=== PATIENT | male | born 1935 | race African-American/Black ===

== ENCOUNTER → 2017-01-03 | Outpatient (CLI) | payer MEDICARE, MEDICAID ==
[~2017-01-03] MED LIST: AMINOPHYLLINE INJ/PF 250 MG/10 ML SDV IV ONE; REGADENOSON INJ 0.4 MG/5 ML DISP.SYRIN IV ONE
--- NOTE | 2017-01-09 11:19 | RADIOLOGY REPORT ---
STRESS TEST REPORT PATIENT NAME: RITA MCNULTY ROOM#: DATE OF SERVICE: 01/03/2017 AGE: 81Y ORDER#: [id number] REFERRING MD: SHANTEL VALLE M.D. INDICATION: Coronary artery disease, positive stress test, and chest pains. PROCEDURE PERFORMED REST/STRESS SINGLE ISOTOPE CARDIOLITE SPECT IMAGING WITH IV LEXISCAN STRESS AND GATED SPECT IMAGING CLINICAL HISTORY This is a 80-year-old black male with known coronary artery disease and abnormal stress test currently complains of chest pains. Cardiac risk factors diabetes, hypertension, and hypercholesterolemia. PROCEDURE The patient received IV Lexiscan 0.4 mg infused over ten seconds and flushed. The resting heart rate was 59 bpm and increased to 66 bpm at end infusion. The resting BP was 140/86 and remained about the same, 148/72, at end infusion. The patient had symptoms of abdominal cramps and shortness of breath. Resting 12 lead EKG showed sinus rhythm with poor R progression in leads V1, V2, suggesting old anteroseptal CO. At end infusion, no ST changes were seen. Myocardial perfusion imaging was performed at rest 60 minutes following injection of 10.03 mCi Cardiolite ten seconds after the IV Lexiscan injection and flushed. 31.9 mCi Cardiolite was injected and flushed. Gated post stress tomographic imaging was performed 60 minutes after stress. FINDINGS The overall quality of the study is good. The left ventricular cavity is noted to be normal in size on both the rest and stress studies. There is no evidence of abnormal transient ischemic dilatation of the left ventricle. The TID ratio was 1.02 and normal. SPECT images showed a small area of moderate reversible ischemia in the apical inferior wall with complete reversibility, and a larger area of reversible ischemia in the basal two-thirds of the inferior wall with incomplete reversibility. The gated SPECT imaging showed decreased motion and contraction in the entire inferior wall. The left ventricular ejection fraction was calculated to be 51% and low normal. IMPRESSION: MYOCARDIAL PERFUSION IMAGING IS ABNORMAL. 1. THERE IS REVERSIBLE ISCHEMIA IN THE ENTIRE INFERIOR WALL WITH COMPLETE REVERSIBILITY ONLY IN THE APICAL ONE-THIRD OF THE INFERIOR WALL, AND INCOMPLETE REVERSIBILITY IN THE BASAL TWO-THIRDS OF THE INFERIOR WALL. 2. THERE IS NO FIXED PERFUSION DEFECT. 3. THE LEFT VENTRICULAR SYSTOLIC FUNCTION IS LOW NORMAL AT 51% AND 4. THERE IS REDUCED MOTION AND CONTRACTION IN THE INFERIOR WALL. 5. NO PRIOR STUDIES FOR COMPARISON. INTERPRETING PHYSICIAN: SHANTEL VALLE M.D. /: LINDA TT: [id number] ID: [id number] /: [id number] TD: [id number] JOB: [id number] cc:Victor Manuel LUBIN M.D. > JUMAD
== END ==
LOC: RAD 06:15
PROVIDERS: ATTEND Internal Medicine Cardiovascular Disease
DX: I25.10 Atherosclerotic heart disease of native coronary artery without angina pectoris (principal)
CPT/HCPCS: 93017; 78452; A9500; J2785; J0280; Q9969

== ENCOUNTER → 2017-08-28 | Outpatient (CLI) | payer MEDICARE, MEDICAID ==
[2017-08-28 13:32] LABS: ALANINE AMINOTRANSFERASE 34 U/L (21-72); ALBUMIN 3.8 g/dL (3.5-5.0); ALKALINE PHOSPHATASE 63 U/L (38-126); ANION GAP 9 (5-19); ASPARTATE AMINO TRANSFERASE 27 U/L (17-59); BILIRUBIN,DIRECT 0.3 mg/dL (0.0-0.4); BILIRUBIN,TOTAL 0.9 mg/dL (0.2-1.3); BLOOD UREA NITROGEN 12 mg/dL (7-20); CARBON DIOXIDE 30 mmol/L (22-30); CHLORIDE 103 mmol/L (98-107); CHOLESTEROL 142.92 mg/dL (0-200); GLUCOSE 112 mg/dL (75-110); POTASSIUM 4.2 mmol/L (3.6-5.0); SODIUM 142.2 mmol/L (137-145); TOTAL PROTEIN 6.8 g/dL (6.3-8.2); TRIGLYCERIDES 105 mg/dL (<150)
[2017-08-28 13:42] LABS: DIRECT LDL 70 mg/dL (<100)
== END ==
LOC: OD 12:25
PROVIDERS: ATTEND Internal Medicine Cardiovascular Disease
DX: E78.2 Mixed hyperlipidemia (principal); E11.9 Type 2 diabetes mellitus without complications; Z79.899 Other long term (current) drug therapy
CPT/HCPCS: 36415; 80048; 80061; 80076; 83036

== ENCOUNTER 2018-02-06 14:39 | Emergency (ER) | payer MEDICARE, MEDICAID ==
--- NOTE | 2018-02-06 15:26 | ER Document Report ---
ED Medical Screen (RME) - General Chief Complaint: Inability to Void Stated Complaint: DIFFICULTY URINATING,ABDOMINAL PAIN Time Seen by Provider: 02/06/18 15:16 Notes: RAPID MEDICAL EVALUATION DISCLOSURE I have seen this patient as part of a Rapid Medical Evaluation and, if applicable, placed any initially appropriate orders. The patient will be seen and fully evaluated, including a full history and physical exam, by a provider ( in Main ED or Fast Track) when a room becomes available. 82-year-old male PMH BPH and urinary retention here with complaints of difficulty urinating with subsequent lower abdominal pain. He was last able to urinate approximately 10 hours ago but has not urinated since then. He has not tried anything for the symptoms. He has not been taking any new medications recently. He does have a history of similar requiring insertion of a Biswas catheter but cannot tell me how long ago this occurred. He denies any fevers chills diarrhea or any other symptoms. EXAM Mild to moderate suprapubic TTP No peritoneal signs TRAVEL OUTSIDE OF THE [place] IN LAST 30 DAYS: No - Related Data Allergies/Adverse Reactions: No Known Allergies Allergy (Verified 02/06/18 14:40) Past Medical History - Social History Chew tobacco use (# tins/day): No Frequency of alcohol use: None Drug Abuse: None - Past Medical History Cardiac Medical History: Reports: Hx Hypercholesterolemia, Hx Hypertension Endocrine Medical History: Reports: Hx Diabetes Mellitus Type 2 Renal/ Medical History: Denies: Hx Peritoneal Dialysis Skin Medical History: Denies Hx MRSA Past Surgical History: Reports: Hx Cardiac Surgery - Immunizations Hx Diphtheria, Pertussis, Tetanus Vaccination: Yes Physical Exam - Vital signs Vitals: Temp Pulse Resp BP Pulse Ox 97.8 F 111 H 32 H 143/75 H 94 02/06/18 14:48 02/06/18 14:48 02/06/18 14:48 02/06/18 14:48 02/06/18 14:48 Course - Vital Signs Vital signs: Temp Pulse Resp BP Pulse Ox 97.8 F 111 H 32 H 143/75 H 94 02/06/18 14:48 02/06/18 14:48 02/06/18 14:48 02/06/18 14:48 02/06/18 14:48 Doctor's Discharge - Discharge Referrals: SHANTEL VALLE MD [Primary Care Provider] - Follow up as needed
[2018-02-06] MEDS ORDERED: LIDOCAINE 2% URO-JET 5 ML KIT MM ONE (15:56)
--- NOTE | 2018-02-06 16:29 | ER Document Report ---
ED GI/ - General Chief Complaint: Inability to Void Stated Complaint: DIFFICULTY URINATING,ABDOMINAL PAIN Time Seen by Provider: 02/06/18 15:16 Mode of Arrival: Wheelchair Information source: Patient Notes: Provider was called to the room because sales technician had been attempting to insert a Biswas catheter and after she met resistance she removed the catheter and noticed that patient had bleeding from the penis. Cast Iron Drain Pipe Layer states that she did not force the catheter but was concerned about the bleeding. Patient presents stating that he has had difficulty voiding and has not urinated for the past 11 hours. Denies any episodes of bleeding. Patient states that he has not had a history of BPH. Patient complains of some lower pelvic tenderness and chills at home. TRAVEL OUTSIDE OF THE [place] IN LAST 30 DAYS: No - HPI Patient complains to provider of: Abdominal pain - Lower pelvic pain, Other - Urinary retention Onset: This morning Timing/Duration: Gradual Quality of pain: Achy, Pressure Pain Level: 4 Location: Pelvis Associated symptoms: Diarrhea, Shortness of breath, Urinary retention. denies: Chest pain, Hurts to breath, Loss of appetite Exacerbated by: Denies Relieved by: Denies Similar symptoms previously: No Recently seen / treated by doctor: No - Related Data Allergies/Adverse Reactions: No Known Allergies Allergy (Verified 02/06/18 14:40) Past Medical History - General Information source: Patient - Social History Smoking Status: Former Smoker Chew tobacco use (# tins/day): No Frequency of alcohol use: None Drug Abuse: None Lives with: Spouse/Significant other Family History: Reviewed & Not Pertinent Patient has suicidal ideation: No Patient has homicidal ideation: No - Past Medical History Cardiac Medical History: Reports: Hx Hypercholesterolemia, Hx Hypertension Endocrine Medical History: Reports: Hx Diabetes Mellitus Type 2 Renal/ Medical History: Denies: Hx Peritoneal Dialysis Skin Medical History: Denies Hx MRSA Past Surgical History: Reports: Hx Cardiac Surgery - Immunizations Hx Diphtheria, Pertussis, Tetanus Vaccination: Yes Review of Systems - Review of Systems Constitutional: Chills EENT: No symptoms reported Cardiovascular: No symptoms reported. denies: Chest pain Respiratory: Short of breath. denies: Cough Gastrointestinal: Abdominal pain, Diarrhea. denies: Nausea, Vomiting Genitourinary: Retention Male Genitourinary: No symptoms reported Musculoskeletal: No symptoms reported. denies: Back pain Skin: No symptoms reported Hematologic/Lymphatic: No symptoms reported Neurological/Psychological: No symptoms reported Physical Exam - Vital signs Vitals: Temp Pulse Resp BP Pulse Ox 97.8 F 111 H 32 H 143/75 H 94 02/06/18 14:48 02/06/18 14:48 02/06/18 14:48 02/06/18 14:48 02/06/18 14:48 - General General appearance: Appears well, Alert In distress: Mild - Respiratory Respiratory status: No respiratory distress Chest status: Nontender Breath sounds: Normal. No: Rales, Rhonchi, Stridor, Wheezing Chest palpation: Normal - Cardiovascular Rhythm: Tachycardia Heart sounds: S1 appreciated, S2 appreciated - Abdominal Inspection: Normal Distension: No distension Bowel sounds: Normal Tenderness: Tender - suprapubic - Genitourinary Inspection: Blood at meatus Tenderness: Nontender - Back Back: Normal, Nontender - Extremities General upper extremity: Normal inspection, Normal ROM General lower extremity: Normal inspection, Normal ROM - Neurological Neuro grossly intact: Yes Cognition: Normal Madeline Coma Scale Eye Opening: Spontaneous Secretary Coma Scale Verbal: Oriented Secretary Coma Scale Motor: Obeys Commands Secretary Coma Scale Total: 15 - Psychological Associated symptoms: Normal affect, Normal mood - Skin Skin Temperature: Warm Skin Moisture: Dry Skin Color: Normal Course - Re-evaluation Re-evalutation: 02/06/[address] Burns to bedside for examination. Patient with bleeding from penis. Provider unable to insert a coud catheter. Patient continues with bleeding from the penis. Dr. Burns with ultrasound at bedside to assist with catheterization. Patient does have occasional urine leaking from penis with blood. 02/06/18 1705 Call placed to [facility] for consultation with Dr. Lyon. Dr. Lyon is not on-call for the hospital but graciously accepted phone call. Advises transfer to facility that has urology services on. 02/06/18 17:18 Call placed to transfer center, awaiting consult with urology. 02/06/18 17:[address] Burns regarding patient management, advises adding on cardiac enzyme testing and advises a contrasted CT scan if renal function tests are within normal limits. 02/06/18 17:38 Patient continues tachycardic, heart rate up into the upper 120s, blood pressure 105/63. Patient does continue to have bleeding. Unit of packed red blood cells have been ordered. Call placed again to transfer center to see if transfer can be expedited with consideration of possible air transfer ER to ER. Transfer center states that they have to wait until the urologist returns the phone call for consultation that they cannot consult with hospitalist or the ER staff at this time. 02/06/18 17:43 Consulted with radiologist regarding patient's renal function and concerned about bleeding. Advises contrasted scan with use of limited IV contrast and advises using Visipaque contrast. ambulatory technologist advised of conversation. 02/06/18 17:50 Provider to bedside. Patient now with gingival bleeding. Dr. Burns updated. Additional unit of packed red blood cells ordered as well as additional IV. 02/06/18 18:[address] Rocha at [facility]. Dr. Rocha with additional questions and uncertain about patient's need for transfer. Dr. Burns spoke with Dr. Rocha regarding patient presentation and concerns about the need for transfer to a higher level of care given that we do not have the urology services home economist. Dr. Burns did voice to the transfer center concern for expedited transfer. 02/06/18 18:12 Tech reports that rectal temperature was obtained. Patient is febrile. RN attempting to get bladder scan performed. Awaiting consultation with hospitalist and transfer center. 02/06/18 18:28 Patient on cooling blanket, patient drowsy, arouses to voice. Patient updated regarding plan of care. Patient family agreeable for transfer. 02/06/18 18:34 Dr. Burns gave report to hospital mechanical process engineer Dr. Gutierrez. Patient awaiting air transport at this time. Grant also advises giving Toradol 15 mg to defervesce patient. 02/06/18 19:[address] scan at this time. Family updated regarding plan of care. Propagation Worker states that helicopter has arrived for transfer. 02/06/18 20:03 Reviewed results of patient's pending labs and imaging studies that were performed just prior to patient being transferred out of the department. Transfer center at [facility] was called and Kat in the transfer center was advised of critical results including his potassium, decrease in H&H, decreased platelets, and results of imaging studies. Copies of these tests will be made per the racing secretary and handicapper and faxed to Luanne at the transfer center. Transfer center states that they will forward this information to patients provider. - Vital Signs Vital signs: Temp Pulse Resp BP Pulse Ox 104.1 F H 111 H 30 H 112/69 94 02/06/18 19:10 02/06/18 14:48 02/06/18 19:05 02/06/18 19:05 02/06/18 19:05 - Laboratory Result Diagrams: 02/06/18 18:43 02/06/18 18:43 Laboratory results interpreted by me: 02/06/18 02/06/18 02/06/18 16:42 16:42 16:42 WBC 3.2 L RBC 4.28 L Hgb Hct MCV 100 H MCH 34.2 H RDW 14.9 H Plt Count 119 L Seg Neutrophils % 90.7 H Seg Neuts % (Manual) Band Neutrophils % Lymphocytes % 8.4 L Monocytes % 0.6 L Absolute Lymphocytes 0.3 L Abs Lymphs (Manual) Absolute Monocytes 0.0 L PT 17.8 H APTT 48.7 H Potassium 3.2 L Chloride Carbon Dioxide BUN 21 H Creatinine 1.96 H Est GFR ( Amer) 40 L Est GFR (Non-Af Amer) 33 L Glucose 119 H Lactic Acid Calcium Alkaline Phosphatase Creatine Kinase Crossmatch 02/06/18 02/06/18 02/06/18 16:42 16:42 16:42 WBC RBC Hgb Hct MCV MCH RDW Plt Count Seg Neutrophils % Seg Neuts % (Manual) Band Neutrophils % Lymphocytes % Monocytes % Absolute Lymphocytes Abs Lymphs (Manual) Absolute Monocytes PT APTT Potassium Chloride Carbon Dioxide BUN Creatinine Est GFR ( Amer) Est GFR (Non-Af Amer) Glucose Lactic Acid Calcium Alkaline Phosphatase 197 H Creatine Kinase 237 H Crossmatch See Detail 02/06/18 02/06/18 02/06/18 17:45 18:43 18:43 WBC 2.9 L RBC 3.68 L Hgb 12.3 L D Hct 36.3 L MCV 99 H MCH 33.5 H RDW 15.4 H Plt Count 84 L Seg Neutrophils % Seg Neuts % (Manual) 80 H Band Neutrophils % 2 L Lymphocytes % Monocytes % Absolute Lymphocytes Abs Lymphs (Manual) 0.4 L Absolute Monocytes PT APTT Potassium 2.7 L* Chloride 109 H Carbon Dioxide 20 L BUN 22 H Creatinine 1.64 H Est GFR ( Amer) 49 L Est GFR (Non-Af Amer) 40 L Glucose Lactic Acid 5.4 H Calcium 7.3 L Alkaline Phosphatase Creatine Kinase Crossmatch Labs- Entire Visit 02/06/18 02/06/18 02/06/18 16:42 16:42 16:42 WBC 3.2 L RBC 4.28 L Hgb 14.6 Hct 42.7 MCV 100 H MCH 34.2 H MCHC 34.3 RDW 14.9 H Plt Count 119 L Total Counted Seg Neutrophils % 90.7 H Seg Neuts % (Manual) Band Neutrophils % Lymphocytes % 8.4 L Lymphocytes % (Manual) Monocytes % 0.6 L Monocytes % (Manual) Eosinophils % 0.1 Eosinophils % (Manual) Basophils % 0.2 Basophils % (Manual) Absolute Neutrophils 2.9 Abs Neuts (Manual) Absolute Lymphocytes 0.3 L Abs Lymphs (Manual) Absolute Monocytes 0.0 L Abs Monocytes (Manual) Absolute Eosinophils 0.0 Absolute Eos (Manual) Absolute Basophils 0.0 Abs Basophils (Manual) Nucleated RBCs Toxic Granulation Platelet Comment Anisocytosis Macrocytosis PT 17.8 H INR 1.40 APTT 48.7 H VBG pH VBG pCO2 VBG HCO3 VBG Base Excess Sodium 142.5 Potassium 3.2 L Chloride 103 Carbon Dioxide 22 Anion Gap 18 BUN 21 H Creatinine 1.96 H Est GFR ( Amer) 40 L Est GFR (Non-Af Amer) 33 L Glucose 119 H Lactic Acid Calcium 8.8 Total Bilirubin Direct Bilirubin Neonat Total Bilirubin Neonat Direct Bilirubin Neonat Indirect Bili AST ALT Alkaline Phosphatase Creatine Kinase CK-MB (CK-2) Troponin I Total Protein Albumin Blood Type Antibody Screen Crossmatch 02/06/18 02/06/18 02/06/18 16:42 16:42 16:42 WBC RBC Hgb Hct MCV MCH MCHC RDW Plt Count Total Counted Seg Neutrophils % Seg Neuts % (Manual) Band Neutrophils % Lymphocytes % Lymphocytes % (Manual) Monocytes % Monocytes % (Manual) Eosinophils % Eosinophils % (Manual) Basophils % Basophils % (Manual) Absolute Neutrophils Abs Neuts (Manual) Absolute Lymphocytes Abs Lymphs (Manual) Absolute Monocytes Abs Monocytes (Manual) Absolute Eosinophils Absolute Eos (Manual) Absolute Basophils Abs Basophils (Manual) Nucleated RBCs Toxic Granulation Platelet Comment Anisocytosis Macrocytosis PT INR APTT VBG pH VBG pCO2 VBG HCO3 VBG Base Excess Sodium Potassium Chloride Carbon Dioxide Anion Gap BUN Creatinine Est GFR ( Amer) Est GFR (Non-Af Amer) Glucose Lactic Acid Calcium Total Bilirubin 1.1 Direct Bilirubin 0.3 Neonat Total Bilirubin Not Reportable Neonat Direct Bilirubin Not Reportable Neonat Indirect Bili Not Reportable AST 44 ALT 26 Alkaline Phosphatase 197 H Creatine Kinase 237 H CK-MB (CK-2) 1.96 Troponin I 0.358 Total Protein 7.1 Albumin 3.7 Blood Type Antibody Screen Crossmatch 02/06/18 02/06/18 02/06/18 16:42 17:45 17:45 WBC RBC Hgb Hct MCV MCH MCHC RDW Plt Count Total Counted Seg Neutrophils % Seg Neuts % (Manual) Band Neutrophils % Lymphocytes % Lymphocytes % (Manual) Monocytes % Monocytes % (Manual) Eosinophils % Eosinophils % (Manual) Basophils % Basophils % (Manual) Absolute Neutrophils Abs Neuts (Manual) Absolute Lymphocytes Abs Lymphs (Manual) Absolute Monocytes Abs Monocytes (Manual) Absolute Eosinophils Absolute Eos (Manual) Absolute Basophils Abs Basophils (Manual) Nucleated RBCs Toxic Granulation Platelet Comment Anisocytosis Macrocytosis PT INR APTT VBG pH 7.35 VBG pCO2 41.3 VBG HCO3 22.3 VBG Base Excess -3.1 Sodium Potassium Chloride Carbon Dioxide Anion Gap BUN Creatinine Est GFR ( Amer) Est GFR (Non-Af Amer) Glucose Lactic Acid 5.4 H Calcium Total Bilirubin Direct Bilirubin Neonat Total Bilirubin Neonat Direct Bilirubin Neonat Indirect Bili AST ALT Alkaline Phosphatase Creatine Kinase CK-MB (CK-2) Troponin I Total Protein Albumin Blood Type O POSITIVE Antibody Screen NEGATIVE Crossmatch See Detail 02/06/18 02/06/18 18:43 18:43 WBC 2.9 L RBC 3.68 L Hgb 12.3 L D Hct 36.3 L MCV 99 H MCH 33.5 H MCHC 34.0 RDW 15.4 H Plt Count 84 L Total Counted 100 Seg Neutrophils % Not Reportable Seg Neuts % (Manual) 80 H Band Neutrophils % 2 L Lymphocytes % Not Reportable Lymphocytes % (Manual) 15 Monocytes % Not Reportable Monocytes % (Manual) 3 Eosinophils % Not Reportable Eosinophils % (Manual) 0 Basophils % Not Reportable Basophils % (Manual) 0 Absolute Neutrophils Not Reportable Abs Neuts (Manual) 2.4 Absolute Lymphocytes Not Reportable Abs Lymphs (Manual) 0.4 L Absolute Monocytes Not Reportable Abs Monocytes (Manual) 0.1 Absolute Eosinophils Not Reportable Absolute Eos (Manual) 0.0 Absolute Basophils Not Reportable Abs Basophils (Manual) 0.0 Nucleated RBCs 1 Toxic Granulation SLIGHT Platelet Comment DECREASED Anisocytosis SLIGHT Macrocytosis SLIGHT PT INR APTT VBG pH VBG pCO2 VBG HCO3 VBG Base Excess Sodium 143.5 Potassium 2.7 L* Chloride 109 H Carbon Dioxide 20 L Anion Gap 15 BUN 22 H Creatinine 1.64 H Est GFR ( Amer) 49 L Est GFR (Non-Af Amer) 40 L Glucose 102 Lactic Acid Calcium 7.3 L Total Bilirubin Direct Bilirubin Neonat Total Bilirubin Neonat Direct Bilirubin Neonat Indirect Bili AST ALT Alkaline Phosphatase Creatine Kinase CK-MB (CK-2) Troponin I Total Protein Albumin Blood Type Antibody Screen Crossmatch - Diagnostic Test Radiology reviewed: Reports reviewed Discharge - Discharge Clinical Impression: Gingival bleeding, Penile bleeding, DIC (disseminated intravascular coagulation ), Urinary retention, Elevated troponin Sepsis Qualifiers: Sepsis type: sepsis due to unspecified organism Qualified Code(s): A41.9 - Sepsis, unspecified organism Condition: Serious Disposition: [facility] Referrals: SHANTEL VALLE MD [Primary Care Provider] - Follow up as needed
[2018-02-06] MEDS ORDERED: CEFTRIAXONE INJ 1000 MG VIAL IV ONE (16:57)
[2018-02-06] MEDS ORDERED: NORMAL SALINE 1000 ML 1,000 ML IV ONE ×2 (16:59→17:41)
[2018-02-06 17:07] LABS: ABSOLUTE LYMPHOCYTES (AUTO) 0.3 10^3/uL (0.5-4.7); ABSOLUTE NEUT (AUTO) 2.9 10^3/uL (1.7-8.2); BASOPHILS % (AUTO) 0.2 % (0-2); EOSINOPHILS % (AUTO) 0.1 % (0-6); HEMATOCRIT 42.7 % (37.9-51.0); HEMOGLOBIN 14.6 g/dL (13.5-17.0); LYMPHOCYTES % (AUTO) 8.4 % (13-45); MEAN CORPUSCULAR HEMOGLOBIN 34.2 pg (27.0-33.4); MEAN CORPUSCULAR HGB CONC 34.3 g/dL (32.0-36.0); MEAN CORPUSCULAR VOLUME 100 fl (80-97); MONOCYTES % (AUTO) 0.6 % (3-13); PLATELET COUNT 119 10^3/uL (150-450); RED BLOOD COUNT 4.28 10^6/uL (4.35-5.55); RED CELL DISTRIBUTION WIDTH 14.9 % (11.5-14.0); SEGMENTED NEUTROPHILS % (AUTO) 90.7 % (42-78); TOTAL CELLS COUNTED % (AUTO) 100 %; WHITE BLOOD COUNT 3.2 10^3/uL (4.0-10.5)
[2018-02-06 17:10] LABS: PROTHROMBIN TIME 17.8 SEC (11.4-15.4)
[2018-02-06 17:11] LABS: PARTIAL THROMBOPLASTIN TIME 48.7 SEC (23.5-35.8)
[2018-02-06 17:25] LABS: ANION GAP 18 (5-19); BLOOD UREA NITROGEN 21 mg/dL (7-20); CALCIUM 8.8 mg/dL (8.4-10.2); CARBON DIOXIDE 22 mmol/L (22-30); CHLORIDE 103 mmol/L (98-107); GLUCOSE 119 mg/dL (75-110); POTASSIUM 3.2 mmol/L (3.6-5.0); SODIUM 142.5 mmol/L (137-145)
[2018-02-06 17:26] LABS: ALANINE AMINOTRANSFERASE 26 U/L (21-72); ALBUMIN 3.7 g/dL (3.5-5.0); ALKALINE PHOSPHATASE 197 U/L (38-126); ASPARTATE AMINO TRANSFERASE 44 U/L (17-59); BILIRUBIN,DIRECT 0.3 mg/dL (0.0-0.4); BILIRUBIN,TOTAL 1.1 mg/dL (0.2-1.3); TOTAL PROTEIN 7.1 g/dL (6.3-8.2)
[2018-02-06] MEDS ORDERED: NORMAL SALINE 250 ML IV PRN ×2 (17:37→17:49)
[2018-02-06 17:43] LABS: CREATINE KINASE 237 U/L (55-170)
[2018-02-06 17:53] LABS: CREATINE KINASE MB 1.96 ng/mL (<4.55)
[2018-02-06 18:02] LABS: TROPONIN I 0.358 ng/mL
[2018-02-06] MEDS ORDERED: PIPERACILLIN/TAZOBACTAM 3.375 GM VIAL IV ONE (18:11)
[2018-02-06] MEDS ORDERED: ACETAMINOPHEN 650 MG SUPP.RECT PR ONE (18:11)
[2018-02-06 18:16] LABS: VENOUS BLOOD BASE EXCESS -3.1 mmol/L; VENOUS BLOOD HCO3 22.3 mmol/L (20-32); VENOUS BLOOD PCO2 41.3 mmHg (35-63); VENOUS BLOOD PH 7.35 (7.30-7.42)
[2018-02-06] MEDS ORDERED: METHYLPREDNISOLONE INJ 125 MG/2 ML SDV IV ONE (18:18)
[2018-02-06] MEDS ORDERED: KETOROLAC TROMETHAMINE INJ/PF 30 MG/1 ML SDV IV ONE (18:33)
--- NOTE | 2018-02-06 18:59 | ER Document Report ---
Doctor's Note Notes: 02/06/18 18:35 82-year-old male to the emergency department for urinary retention. Please see nurse practitioner's note for further details. I was asked to intervene and evaluate patient as well. There was a Biswas catheter attempts made and there was large amount of blood coming out of the Biswas catheter. If there did not appear to be any major traumatic catheter insertion in my opinion. A 16-inch Biswas coud was used by myself and easily was inserted. There was a large amount of blood that was coming out of the catheter. Appear to be mixed with urine. Patient began to have tachycardia and not feeling well. We then began to notice the patient was bleeding out of his gums. This was apparent that it is possible DIC or some sort of clotting issue which caused development of blood clots in his bladder versus some other intra-abdominal or aortic cystic fistula type situation. Urgency release blood was ordered. Temperature was recorded as 105. Rapid cooling techniques were begun. Rapid admission of antibiotics started. Fluid resuscitation started. Blood pressure continued to drop. Patient was consulted by Dr. Gutierrez at [facility]. He has agreed to accept patient to the ICU and he will manage the patient there. We will continue with blood transfusions. We will also give him a dose of steroids in the event that this may help with the potential DIC situation. Dr. Gutierrez does agree with transfusion and antibiotics. Patient is in very guarded condition at this time. Critical Care Note - Critical Care Note Total time excluding time spent on procedures (mins): 60 Comments: Consultation with specialist
[2018-02-06 19:11] LABS: HEMATOCRIT 36.3 % (37.9-51.0); MEAN CORPUSCULAR HEMOGLOBIN 33.5 pg (27.0-33.4); MEAN CORPUSCULAR VOLUME 99 fl (80-97); RED BLOOD COUNT 3.68 10^6/uL (4.35-5.55); RED CELL DISTRIBUTION WIDTH 15.4 % (11.5-14.0); WHITE BLOOD COUNT 2.9 10^3/uL (4.0-10.5)
[2018-02-06 19:13] LABS: HEMOGLOBIN 12.3 g/dL (13.5-17.0); PLATELET COUNT 84 10^3/uL (150-450)
--- NOTE | 2018-02-06 19:15 | RADIOLOGY REPORT (SQ) ---
EXAM DESCRIPTION: CT HEAD WITHOUT COMPLETED DATE/TIME: 02/06/2018 7:02 pm REASON FOR STUDY: bleeding COMPARISON: 09/06/2010 TECHNIQUE: Axial images acquired through the brain without intravenous contrast. Images reviewed wi th bone, brain and subdural windows. Additional sagittal and coronal reconstructions were generated. Images stored on PACS. All CT scanners at this facility use dose modulation, iterative reconstruction, and/or weight based d osing when appropriate to reduce radiation dose to as low as reasonably achievable (ALARA). [facility]: Dose Right [facility]: CareDose [facility]: Dose Right [facility]: Teradose 4D [facility]: Smart Valchemy RADIATION DOSE: CT Rad equipment meets quality standard of care and radiation dose reduction techniq ues were employed. CTDIvol: 55.2 mGy. DLP: 1029 mGy-cm. mGy. LIMITATIONS: None. FINDINGS: VENTRICLES: Normal size and contour. CEREBRUM: No masses. No hemorrhage. No midline shift. No evidence for acute infarction. Few scatte red areas of low density in the white matter most likely chronic small vessel ischemic changes. CEREBELLUM: No masses. No hemorrhage. No alteration of density. No evidence for acute infarction. EXTRAAXIAL SPACES: No fluid collections. No masses. ORBITS AND GLOBE: No intra- or extraconal masses. Normal contour of globe without masses. CALVARIUM: No fracture. PARANASAL SINUSES: No fluid or mucosal thickening. SOFT TISSUES: No mass or hematoma. OTHER: No other significant finding. IMPRESSION: MILD CHRONIC MICROVASCULAR ISCHEMIA. NO ACUTE IMAGING FINDINGS IN THE BRAIN. EVIDENCE OF ACUTE STROKE: NO. COMMENT: Quality ID # [id number]: Final reports with documentation of one or more dose reduction techniques (e.g., Automated exposure control, adjustment of the mA and/or kV according to patient size, use of iterative reconstruction technique) TECHNICAL DOCUMENTATION: JOB ID: [id number] [employer]- All Rights Reserved Reading location - IP/workstation name: [email or web address]
[2018-02-06 19:17] VITALS: BP 112/69
[2018-02-06 19:22] LABS: ANION GAP 15 (5-19); BLOOD UREA NITROGEN 22 mg/dL (7-20); CALCIUM 7.3 mg/dL (8.4-10.2); CARBON DIOXIDE 20 mmol/L (22-30); CHLORIDE 109 mmol/L (98-107); GLUCOSE 102 mg/dL (75-110); SODIUM 143.5 mmol/L (137-145)
--- NOTE | 2018-02-06 19:22 | RADIOLOGY REPORT (SQ) ---
EXAM DESCRIPTION: CT ABD/PELVIS WITH IV ONLY COMPLETED DATE/TIME: 02/06/2018 7:02 pm REASON FOR STUDY: urinary retention, bleeding from penis COMPARISON: None. TECHNIQUE: CT scan of the abdomen and pelvis performed using helical scanning technique with dynamic intravenous contrast injection. No oral contrast. Images reviewed with lung, soft tissue, and bone windows. Reconstructed coronal and sagittal MPR images reviewed. Delayed images for evaluation of the urinary system also acquired. All images stored on PACS. All CT scanners at this facility use dose modulation, iterative reconstruction, and/or weight based d osing when appropriate to reduce radiation dose to as low as reasonably achievable (ALARA). [facility]: Dose Right [facility]: CareDose [facility]: Dose Right [facility]: Teradose 4D [facility]: [employer] CONTRAST TYPE AND DOSE: contrast/concentration: Isovue 300.00 mg/ml; Total Contrast Delivered: 75.0 ml; Total Saline Delivered: 66.0 ml RENAL FUNCTION: BUN 21 creatinine 1.96 RADIATION DOSE: CT Rad equipment meets quality standard of care and radiation dose reduction techniq ues were employed. CTDIvol: 9.6 - 14.4 mGy. DLP: 1214 mGy-cm.. LIMITATIONS: None. FINDINGS: LOWER CHEST: No significant findings. No nodules or infiltrates. LIVER: Normal size. No masses. No dilated ducts. SPLEEN: Normal size. No focal lesions. PANCREAS: No masses. No significant calcifications. No adjacent inflammation or peripancreatic fluid collections. Pancreatic duct not dilated. GALLBLADDER: Multiple small gallstones are present. ADRENAL GLANDS: No significant masses or asymmetry. RIGHT KIDNEY AND URETER: No solid masses. No significant calcifications. No hydronephrosis or hyd roureter. LEFT KIDNEY AND URETER: No solid masses. No significant calcifications. No hydronephrosis or hydr oureter. AORTA AND VESSELS: No aneurysm. No dissection. Renal arteries, SMA, celiac without stenosis. RETROPERITONEUM: No retroperitoneal adenopathy, hemorrhage or masses. BOWEL AND PERITONEAL CAVITY: No masses or inflammatory changes. No free fluid or peritoneal masses. APPENDIX: Normal. PELVIS: 5 mm calculus at the right UVJ. Urinary bladder is otherwise unremarkable. Prostate gland i s prominent. ABDOMINAL WALL: No masses. No hernias. BONES: No significant or acute findings. OTHER: No other significant finding. IMPRESSION: 1. Cholelithiasis. 2. 5 mm calculus at the right UVJ. There is no significant hydronephrosis on the right. 3. Prominent prostate gland. TECHNICAL DOCUMENTATION: JOB ID: [id number] Quality ID # [id number]: Final reports with documentation of one or more dose reduction techniques (e.g., Au tomated exposure control, adjustment of the mA and/or kV according to patient size, use of iterative reconstruction technique) 2010 [employer]- All Rights Reserved Reading location - IP/workstation name: [email or web address]
--- NOTE | 2018-02-06 19:23 | RADIOLOGY REPORT (SQ) ---
EXAM DESCRIPTION: CHEST SINGLE VIEW COMPLETED DATE/TIME: 02/06/2018 7:08 pm REASON FOR STUDY: sob COMPARISON: 09/05/2010 EXAM PARAMETERS: NUMBER OF VIEWS: One view. TECHNIQUE: Single frontal radiographic view of the chest acquired. RADIATION DOSE: NA LIMITATIONS: None. FINDINGS: LUNGS AND PLEURA: No opacities, masses or pneumothorax. No pleural effusion. MEDIASTINUM AND HILAR STRUCTURES: No masses. Contour normal. HEART AND VASCULAR STRUCTURES: Heart normal in size. Normal vasculature. BONES: No acute findings. HARDWARE: Sternotomy wires. OTHER: No other significant finding. IMPRESSION: NO ACUTE RADIOGRAPHIC FINDING IN THE CHEST. TECHNICAL DOCUMENTATION: JOB ID: [id number] [employer]- All Rights Reserved Reading location - IP/workstation name: [email or web address]
[2018-02-06 19:25] LABS: POTASSIUM 2.7 mmol/L (3.6-5.0)
[2018-02-06 19:36] LABS: ABSOLUTE LYMPHOCYTES# (MANUAL) 0.4 10^3/uL (0.5-4.7); ABSOLUTE MONOCYTES # (MANUAL) 0.1 10^3/uL (0.1-1.4); ABSOLUTE NEUTROPHILS# (MANUAL) 2.4 10^3/uL (1.7-8.2); BAND NEUTROPHILS % (MANUAL) 2 % (3-5); BASOPHILS % (MANUAL) 0 % (0-2); EOSINOPHILS % (MANUAL) 0 % (0-6); LYMPHOCYTES % (MANUAL) 15 % (13-45); MONOCYTES % (MANUAL) 3 % (3-13); NUCLEATED RED BLOOD CELLS 1 /100 WBC (0); SEGMENTED NEUTROPHILS % (MAN) 80 % (42-78); TOTAL CELLS COUNTED 100
[2018-02-06 19:37] LABS: ANISOCYTOSIS SLIGHT; PLATELET COMMENT DECREASED; TOXIC GRANULATION SLIGHT
--- NOTE | 2018-02-06 19:55 | EKG REPORT ---
SEVERITY:- BORDERLINE ECG - SINUS TACHYCARDIA BORDERLINE T ABNORMALITIES, ANT-LAT LEADS : Confirmed by: Lane More MD 06-Feb-2018 19:54:48
== END 2018-02-06 19:20 | disposition short-term general hospital (02) ==
LOC: ER 14:39
DX: A41.9 Sepsis, unspecified organism (principal); D65 Disseminated intravascular coagulation [defibrination syndrome]; R33.9 Retention of urine, unspecified; K06.8 Other specified disorders of gingiva and edentulous alveolar ridge; N48.89 Other specified disorders of penis; R74.8 Abnormal levels of other serum enzymes; R10.2 Pelvic and perineal pain; R19.7 Diarrhea, unspecified; R50.9 Fever, unspecified; R06.02 Shortness of breath; R00.0 Tachycardia, unspecified; E11.9 Type 2 diabetes mellitus without complications; I10 Essential (primary) hypertension; Z87.891 Personal history of nicotine dependence
CPT/HCPCS: 93005; 99285; 96361; 96375; 96365; 86900; 86901; 36415; 87040; 82553; 36430; 86850; 82550; 85025; 85610; 85730; 80076; 80048; 84484; 86920; 82803; 83605; 71045; 70450; 74177; 93010; C1758 ×3; P9016; A9270 ×2; J2930; J1885; J0696; J7030; J7050; J2543; J3490

== ENCOUNTER → 2018-07-18 | Outpatient (CLI) | payer MEDICARE, MEDICAID ==
--- NOTE | 2018-07-18 13:57 | RADIOLOGY REPORT (SQ) ---
EXAM DESCRIPTION: SHOULDER RIGHT 2 OR MORE VIEWS COMPLETED DATE/TIME: 07/18/2018 12:03 pm REASON FOR STUDY: PAIN IN RIGHT SHOULDER COMPARISON: None. NUMBER OF VIEWS: Three views right shoulder. LIMITATIONS: None. FINDINGS: There is no acute or significant bone, joint or soft tissue abnormality. OTHER: No other significant finding. IMPRESSION: NORMAL STUDY. TECHNICAL DOCUMENTATION: JOB ID: [id number] Reading location - IP/workstation name: [email or web address]
== END ==
LOC: OD 11:47
PROVIDERS: ATTEND Physician Assistant
DX: M25.511 Pain in right shoulder (principal)

== ENCOUNTER → 2018-08-14 | Outpatient (CLI) | payer MEDICARE, MEDICAID ==
[~2018-08-14] MED LIST changes: -AMINOPHYLLINE INJ/PF 250 MG/10 ML SDV IV ONE
--- NOTE | 2018-08-15 08:03 | RADIOLOGY REPORT ---
STRESS TEST REPORT PATIENT NAME: RITA MCNULTY JR ROOM#: DATE OF SERVICE: 08/14/2018 AGE: 82Y ORDER#: [id number] REFERRING MD: SHANTEL VALLE M.D. CONTINUATION FINDINGS: The overall quality of the study is good. The left ventricular cavity is noted to be normal in size on both the rest and stress studies. There is no evidence of abnormal transient ischemic dilatation of the left ventricle. SPECT images showed a fixed perfusion defect in the inferior wall with no reversible ischemia. The gated SPECT imaging showed no motion contraction in the basal inferior wall. Left ventricular ejection fraction was calculated to be 59%. SUMMARY OF FINDINGS/IMPRESSION: Myocardial perfusion imaging is abnormal. There is a small/moderate area of fixed perfusion defect (an infarction) in the basal inferior wall. There is no reversible ischemia induced by IV Lexiscan. Overall, left ventricular systolic function was normal at 59% and no motion contraction was seen in the segment of the basal inferior wall. No prior studies for comparison. INTERPRETING PHYSICIAN: SHANTEL VALLE M.D. /: [id number] TT: [id number] ID: [id number] /: [id number] TD: [id number] JOB: [id number] cc:SHANTEL VALLE M.D. > MTDD
== END ==
LOC: RAD 06:59
PROVIDERS: ATTEND Internal Medicine Cardiovascular Disease
DX: I25.10 Atherosclerotic heart disease of native coronary artery without angina pectoris (principal)
CPT/HCPCS: 93017; 78452; A9500; J2785; Q9969

== ENCOUNTER → 2018-10-10 | Outpatient (CLI) | payer MEDICARE, MEDICAID ==
[2018-10-10 09:02] LABS: HEMATOCRIT 39.1 % (37.9-51.0); HEMOGLOBIN 13.2 g/dL (13.5-17.0); MEAN CORPUSCULAR HEMOGLOBIN 32.4 pg (27.0-33.4); MEAN CORPUSCULAR HGB CONC 33.6 g/dL (32.0-36.0); MEAN CORPUSCULAR VOLUME 96 fl (80-97); PLATELET COUNT 205 10^3/uL (150-450); RED BLOOD COUNT 4.06 10^6/uL (4.35-5.55); WHITE BLOOD COUNT 4.9 10^3/uL (4.0-10.5)
[2018-10-10 09:17] LABS: ALANINE AMINOTRANSFERASE 35 U/L (21-72); ALBUMIN 3.7 g/dL (3.5-5.0); ALKALINE PHOSPHATASE 60 U/L (38-126); ANION GAP 10 (5-19); ASPARTATE AMINO TRANSFERASE 29 U/L (17-59); BILIRUBIN,DIRECT 0.2 mg/dL (0.0-0.4); BILIRUBIN,TOTAL 0.6 mg/dL (0.2-1.3); BLOOD UREA NITROGEN 21 mg/dL (7-20); CALCIUM 9.1 mg/dL (8.4-10.2); CARBON DIOXIDE 33 mmol/L (22-30); CHLORIDE 101 mmol/L (98-107); CHOLESTEROL 137.28 mg/dL (0-200); GLUCOSE 111 mg/dL (75-110); SODIUM 143.9 mmol/L (137-145); TRIGLYCERIDES 77 mg/dL (<150)
[2018-10-10 09:28] LABS: DIRECT LDL 69 mg/dL (<100)
== END ==
LOC: LAB 08:44
PROVIDERS: ATTEND Physician Assistant
DX: E11.9 Type 2 diabetes mellitus without complications (principal); E78.2 Mixed hyperlipidemia; Z79.899 Other long term (current) drug therapy; I10 Essential (primary) hypertension
CPT/HCPCS: 36415; 80048; 80061; 80076; 83036; 85027

== ENCOUNTER → 2018-10-31 | Outpatient (CLI) | payer MEDICARE, MEDICAID ==
[2018-10-31 10:46] LABS: HEMATOCRIT 40.9 % (37.9-51.0); HEMOGLOBIN 13.7 g/dL (13.5-17.0); MEAN CORPUSCULAR HEMOGLOBIN 32.8 pg (27.0-33.4); MEAN CORPUSCULAR HGB CONC 33.6 g/dL (32.0-36.0); MEAN CORPUSCULAR VOLUME 98 fl (80-97); PLATELET COUNT 212 10^3/uL (150-450); RED BLOOD COUNT 4.19 10^6/uL (4.35-5.55); RED CELL DISTRIBUTION WIDTH 16.9 % (11.5-14.0); WHITE BLOOD COUNT 4.5 10^3/uL (4.0-10.5)
[2018-10-31 11:05] LABS: ALANINE AMINOTRANSFERASE 20 U/L (21-72); ALBUMIN 3.8 g/dL (3.5-5.0); ALKALINE PHOSPHATASE 64 U/L (38-126); ANION GAP 10 (5-19); ASPARTATE AMINO TRANSFERASE 22 U/L (17-59); BILIRUBIN,DIRECT 0.2 mg/dL (0.0-0.4); BILIRUBIN,TOTAL 0.8 mg/dL (0.2-1.3); BLOOD UREA NITROGEN 19 mg/dL (7-20); CALCIUM 9.6 mg/dL (8.4-10.2); CARBON DIOXIDE 30 mmol/L (22-30); CHLORIDE 104 mmol/L (98-107); CHOLESTEROL 135.67 mg/dL (0-200); GLUCOSE 133 mg/dL (75-110); POTASSIUM 4.6 mmol/L (3.6-5.0); SODIUM 144.3 mmol/L (137-145); TOTAL PROTEIN 7.2 g/dL (6.3-8.2); TRIGLYCERIDES 86 mg/dL (<150)
[2018-10-31 11:16] LABS: DIRECT LDL 65 mg/dL (<100)
== END ==
LOC: LAB 10:27
PROVIDERS: ATTEND Internal Medicine Cardiovascular Disease
DX: E11.22 Type 2 diabetes mellitus with diabetic chronic kidney disease (principal); I12.9 Hypertensive chronic kidney disease with stage 1 through stage 4 chronic kidney disease, or unspecified chronic kidney disease; N18.3 Chronic kidney disease, stage 3 (moderate); E78.2 Mixed hyperlipidemia; Z79.899 Other long term (current) drug therapy
CPT/HCPCS: 36415; 80048; 80061; 80076; 83036; 85027

== ENCOUNTER → 2018-11-15 | Outpatient (CLI) | payer MEDICARE, MEDICAID ==
--- NOTE | 2018-11-15 14:16 | RADIOLOGY REPORT (SQ) ---
EXAM DESCRIPTION: CHEST PA/LATERAL COMPLETED DATE/TIME: 11/15/2018 2:05 pm REASON FOR STUDY: CHRONIC OBSTRUCTIVE PULMONARY DISEASE, UNSPECIFIED J44.9 CHRONIC OBSTRUCTIVE PULM ONARY DISEASE, UNSPECIFIED COMPARISON: 09/05/2010. NUMBER OF VIEWS: Two view. TECHNIQUE: Frontal and lateral radiographic views of the chest acquired. LIMITATIONS: None. FINDINGS: LUNGS AND PLEURA: No opacities, masses or pneumothorax. No pleural effusion. Attenuated bl ood vessels and flattened christoph-diaphragms. MEDIASTINUM AND HILAR STRUCTURES: No masses. No contour abnormalities. HEART AND VASCULAR STRUCTURES: Heart normal in size and contour. No evidence for failure. BONES: No acute findings. HARDWARE: Sternotomy wires. OTHER: No other significant finding. IMPRESSION: COPD. NO ACUTE RADIOGRAPHIC FINDING IN THE CHEST. TECHNICAL DOCUMENTATION: JOB ID: [id number] [employer]- All Rights Reserved Reading location - IP/workstation name: [email or web address]
== END ==
LOC: OD 13:54
PROVIDERS: ATTEND Family Medicine
DX: J44.9 Chronic obstructive pulmonary disease, unspecified (principal)
CPT/HCPCS: 71046

== ENCOUNTER → 2019-03-18 | Outpatient (CLI) | payer MEDICARE, MEDICAID ==
[2019-03-18 11:34] LABS: ALBUMIN 3.8 g/dL (3.5-5.0); ALKALINE PHOSPHATASE 61 U/L (38-126); ANION GAP 7 (5-19); ASPARTATE AMINO TRANSFERASE 24 U/L (17-59); BILIRUBIN,DIRECT 0.2 mg/dL (0.0-0.4); BILIRUBIN,TOTAL 0.8 mg/dL (0.2-1.3); BLOOD UREA NITROGEN 15 mg/dL (7-20); CALCIUM 9.3 mg/dL (8.4-10.2); CARBON DIOXIDE 31 mmol/L (22-30); CHLORIDE 103 mmol/L (98-107); CHOLESTEROL 127.58 mg/dL (0-200); GLUCOSE 99 mg/dL (75-110); POTASSIUM 4.6 mmol/L (3.6-5.0); TOTAL PROTEIN 6.8 g/dL (6.3-8.2); TRIGLYCERIDES 88 mg/dL (<150)
[2019-03-18 11:45] LABS: DIRECT LDL 62 mg/dL (<100)
== END ==
LOC: LAB 10:39
PROVIDERS: ATTEND Internal Medicine Cardiovascular Disease
DX: E78.2 Mixed hyperlipidemia (principal); Z79.899 Other long term (current) drug therapy; I10 Essential (primary) hypertension
CPT/HCPCS: 36415; 80048; 80061; 80076

== ENCOUNTER → 2019-11-01 | Outpatient (CLI) | payer MEDICARE, MEDICAID ==
[2019-11-01 11:38] LABS: ANION GAP 6 (5-19); BLOOD UREA NITROGEN 21 mg/dL (7-20); CALCIUM 9.2 mg/dL (8.4-10.2); CARBON DIOXIDE 28 mmol/L (22-30); CHLORIDE 105 mmol/L (98-107); GLUCOSE 117 mg/dL (75-110); POTASSIUM 4.2 mmol/L (3.6-5.0)
== END ==
LOC: OD 10:31
PROVIDERS: ATTEND Internal Medicine Cardiovascular Disease
DX: N18.3 Chronic kidney disease, stage 3 (moderate) (principal)
CPT/HCPCS: 36415; 80048